=== PATIENT | female | born 1955 | race Caucasian/White ===

== ENCOUNTER 2018-04-04 08:43 | Emergency (ER) | payer OTHER, BC, SELFPAY ==
[2018-04-04 08:46] VITALS: BP 147/70; PULSE 82; RESP 18; TEMP 36.7; O2SAT 95
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
[2018-04-04] MEDS: Acetaminophen 325 MG TAB 650 MG PO (09:08)
== END 2018-04-04 11:28 | disposition home or self-care (01) ==
PROVIDERS: Emergency Provider Student in an Organized Health Care Education/Training Program; PCP Family Medicine
DX: M25.551 Pain in right hip (principal); M54.5 Low back pain; V43.53XA Car driver injured in collision with pick-up truck in traffic accident, initial encounter
CPT/HCPCS: 99283; 73502

== ENCOUNTER 2018-04-12 13:31 | Emergency (ER) | payer BC, SELFPAY ==
[2018-04-12] VITALS (73 sets, daily range): BP systolic 108–156; BP diastolic 59–84; PULSE 75–98; RESP 11–21; TEMP 36.7–37.2; O2SAT 92–98
--- NOTE | 2018-04-12 13:56 | DI.RAD_ITS ---
SYMPTOMS/DIAGNOSIS: CHEST PAIN SINCE NOON TODAY PORTABLE AP CHEST: Comparison 07/29/09. The heart size and pulmonary vasculature are within normal limits. The lungs are clear. No effusions or pneumothoraces are identified. Incidental note is made of bilateral breast implants. The bones appear intact. IMPRESSION: No acute pulmonary process.
[2018-04-12 14:17] LABS: Abs Immature Grans 0.01 k/cumm (0.0-0.09); Absolute Basophil Count 0.04 k/cumm (0.0-0.2); Absolute Eosinophil Count 0.22 k/cumm (0.0-0.7); Absolute Lymphocyte Count 1.78 k/cumm (1.2-3.4); Absolute Monocyte Count 0.32 k/cumm (0.11-0.7); Absolute Neutrophil Count 3.31 k/cumm (1.2-6.7); Basophils % 0.7; Eosinophils % 3.9; HCT 40.7 % (36.0-46.0); HGB 13.4 g/dL (12.0-15.5); Immature Grans % 0.2; Lymphocytes % 31.3; Mean Corp. HGB Concentration 32.9 g/dL (32.0-36.0); Mean Corpuscular Hemoglobin 29.5 pg (27.0-33.0); Mean Corpuscular Volume 89.5 fL (80-95); Mean Platelet Volume 9.7 fL (8.0-11.0); Monocytes % 5.6; Neutrophils % 58.3; Platelet Count 220 x1000/uL (130-400); RBC 4.55 m/cumm (4.00-5.20); White Blood Cell Count 5.68 k/cumm (4.4-10.8)
[2018-04-12 14:31] LABS: ALT 25 U/L (12-78); AST 19 U/L (15-37); Albumin 4.1 g/dL (3.4-5.0); Alkaline Phosphatase 102 U/L (46-116); Anion Gap 10.5 mmol/L (3-11); BUN 11 mg/dL (7-18); Bilirubin, Total 0.4 mg/dL (0.2-1.0); CO2 30.5 mmol/L (21.0-32.0); CREATININE 0.83 mg/dL (0.55-1.02); Calcium 9.1 mg/dL (8.5-10.1); Chloride 101 mmol/L (98-107); Glucose 91 mg/dL (70-100); Potassium 3.9 mmol/L (3.5-5.1); Sodium 142 mmol/L (136-145); Total Protein 7.5 g/dL (6.4-8.2); Troponin I 0.04 ng/mL (0.00-0.06)
--- NOTE | 2018-04-12 15:35 | NUR.NOTE ---
pt states that pain level has not decreases and was not relieved by nitro. Nursing Note:
[2018-04-12 16:33] LABS: D-Dimer 290 ng/mlFEU (<500)
--- NOTE | 2018-04-12 16:52 | ED.GENADUL_ITS ---
Discharge Plan Disposition Patient Disposition: HOME Discharge Details Chief Complaint: Chest Pain Clinical Impression: Anxiety, Chest pain Primary Care Provider: Pedro Luis Azul ED Provider: Antoine Choi Home Meds and New Rx's Prescriptions: New aspirin [Aspirin Low Dose] 81 mg tablet,delayed release (DR/EC) 81 mg PO DAILY Qty: 30 RF: 0 Continue ibuprofen 800 MG tablet 800 mg PO PRN RF: 0 duloxetine 60 MG capsule,delayed release(DR/EC) 60 mg PO DAILY Qty: 90 RF: 3 omeprazole 40 MG capsule,delayed release(DR/EC) 40 mg PO DAILY PRNQty: 30 RF: 2 naproxen 500 MG tablet 500 mg PO Q12H PRN Qty: 60 RF: 2 Lorazepam 1 MG tablet 1 mg PO ONCE Qty: 1 RF: 0 hydroxyzine pamoate [Vistaril] 50 mg capsule 50 mg PO tid prn Qty: 90 RF: 2 buspirone 5 mg tablet 5 mg PO TID Qty: 90 RF: 5 methocarbamol [Robaxin-750] 750 mg tablet 750 mg PO tid prn Qty: 90 RF: 1 alprazolam 0.25 mg tablet 0.25 mg PO BID PRN (Reason: anxiety) Qty: 5 RF: 0 pregabalin [Lyrica] 150 mg capsule 150 mg PO BID Qty: 60 RF: 2 eszopiclone [Lunesta] 3 mg tablet 3 mg PO HS PRN (Reason: insomnia) Qty: 30 RF: 1 pregabalin [Lyrica] 150 mg Capsule 150 mg PO DAILY RF: 0 Discharge Instructions Instructions: Chest Pain (ED), Anxiety (ED) Additional Instructions: You need to have a stress test performed as soon as possible. Call to schedule an appointment - see form. Please contact your primary care physician to arrange follow-up. Return to the ER for any worsening or new concerning symptoms. Stand Alone Forms: Work Release Referrals: Pedro Luis Azul [Primary Care Provider] - Discharge Data Discharge Date/Time-TO BE ENTERED AT DEPARTURE: 04/12/18 18:06 Medical Decision Making 16:50 -- 62yo f with history of tobacco use, anxiety, here with left-sided chest pain. Initial trop neg. ddimer neg. cxr interpreted by radiology: The heart size and pulmonary vasculature are within normal limits. The lungs are clear. No effusions or pneumothoraces are identified. Incidental note is made of bilateral breast implants. The bones appear intact. IMPRESSION: No acute pulmonary process I am concerned that anxiety is contributing to current presentation. Patient notes that she has had significant stress in her life regarding family issues. Her father is dying and she recently got back from visiting him in [place]. She is having disputes with her sister about property. As we were discussing that she became quite tearful and noted herself that she thinks her current presentation is related to her anxiety. Counseling was provided and she was encourage to contact her friend for support. 17:28 -- second trop neg. Patient reassessed and has remained stable. HEART score low. Plan for close outpatient follow-up. Will order outpatient stress test to expedite workup. Disposition decision was made weighing the risks and benefits of hospitalization versus outpatient treatment, the risk for further decompensation , and the patient's wishes. The patient was stable and requested discharge. Prior to discharge, my usual and customary return precautions were reviewed with the patient- this included follow-up instructions and reason to return to the emergency department if condition worsens, does not improve as expected, or other new concerns arise. Patient's friend here and will provide social support. Patient requested work note for the next few days which was provided. Referral was made to care management to arrange for close outpatient follow-up. HPI General Mode of arrival: ambulatory . Date/Time Provider Initiated Documentation: 04/12/18 13:43 . Limitations to Documentation: no limitations . Information obtained by: patient . HPI Narrative: 62-year-old female smoker with history of anxiety, presents with chief complaint of chest pain. He notes the chest pain started yesterday and has been constant. Patient notes that she went to bed last night with the pain and woke up with it. Pain is remained constant today. No modifiers. Pain is localized to her left shoulder and left upper chest and does seem to radiate into her neck. Pain is described as an ache. Pain is also sharp. Pain is 6/ 10. She does have associated fatigue and anxiety. She has no assoc SOB. No calf pain or swelling. Related Data Home Medications Medication Instructions Recorded Confirmed ibuprofen 800 mg PO PRN tab-cap 01/01/17 04/12/18 duloxetine 60 mg PO DAILY #90 tab-cap 08/17/17 04/12/18 naproxen 500 mg PO Q12H PRN #60 tab-cap 10/24/17 04/04/18 omeprazole 40 mg PO DAILY PRN #30 tab-cap 10/24/17 04/12/18 buspirone 5 mg tablet 5 mg PO TID #90 tab 02/25/18 04/04/18 hydroxyzine pamoate 50 mg capsule 50 mg PO tid prn #90 tab-cap 02/25/18 04/12/18 methocarbamol 750 mg tablet 750 mg PO tid prn #90 tab-cap 18 04/12/18 alprazolam 0.25 mg tablet 0.25 mg PO BID PRN #5 tab 03/18/18 04/04/18 pregabalin 150 mg capsule 150 mg PO BID #60 cap 03/19/18 04/04/18 eszopiclone 3 mg tablet 3 mg PO HS PRN #30 tab-cap 04/09/18 04/12/18 aspirin [Aspirin Low Dose] 81 mg PO DAILY #30 tab 04/12/18 pregabalin [Lyrica] 150 mg PO DAILY 04/12/18 04/12/18 Previous Rx's Medication Instructions Recorded duloxetine 60 mg PO DAILY #90 tab-cap 08/17/17 naproxen 500 mg PO Q12H PRN #60 tab-cap 10/24/17 buspirone 5 mg tablet 5 mg PO TID #90 tab 02/25/18 hydroxyzine pamoate 50 mg capsule 50 mg PO tid prn #90 tab-cap 02/25/18 methocarbamol 750 mg tablet 750 mg PO tid prn #90 tab-cap 03/01/18 alprazolam 0.25 mg tablet 0.25 mg PO BID PRN #5 tab 03/18/18 pregabalin 150 mg capsule 150 mg PO BID #60 cap 03/19/18 eszopiclone 3 mg tablet 3 mg PO HS PRN #30 tab-cap 04/09/18 aspirin [Aspirin Low Dose] 81 mg PO DAILY #30 tab 04/12/18 Allergies Allergy/AdvReac Type Severity Reaction Status Date / Time Topical Vitamin E AdvReac Severe Rash Uncoded 04/12/18 13:58 General Stated Complaint: Chest Pain POLO: 2 Review of Systems Review of Systems All systems reviewed & are unremarkable except as noted in HPI and below Constitutional Denies fatigue, Denies lethargy and Denies weakness Cardiovascular Reports as per HPI, Reports chest pain and Denies dyspnea Respiratory Denies cough and Denies dyspnea Gastrointestinal Denies nausea and Denies vomiting Musculoskeletal Reports arthralgias (lt shoulder) Integumentary/Breasts Denies rash Neurologic Denies weakness Psychiatric Reports anxiety and Denies suicidal ideation Endocrine Denies fatigue PFSH ARRHYTHMIA ATYPICAL NEVI Chest pain Constipation Gastritis REDUNDANT CAVERNOUS COLON Family History Mother Diabetes Personal history of malignant neoplasm Multiple myeloma Father Essential hypertension Personal history of malignant neoplasm Sister No problems noted. Sister No problems noted. Brother No problems noted. Brother No problems noted. Brother No problems noted. Grandfather Heart disease Grandfather No problems noted. Grandmother Diabetes Essential hypertension Stroke Grandmother Personal history of malignant neoplasm Augmentation mammoplasty Colonoscopy - MAC (06/03/07) EGD - MAC (06/03/07) SKIN LESION EXCISION Stress Test Family History Mother Diabetes Personal history of malignant neoplasm Multiple myeloma Father Essential hypertension Personal history of malignant neoplasm Sister No problems noted. Sister No problems noted. Brother No problems noted. Brother No problems noted. Brother No problems noted. Grandfather Heart disease Grandfather No problems noted. 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 Smoking/Tobacco Use Status: Current-Occasional alcohol intake: current alcohol intake frequency: 0-2 drinks per day substance use type: does not use seatbelt use: always helmet use: Yes helmet use: always Surgical History Augmentation mammoplasty Colonoscopy - MAC (06/03/07) EGD - MAC (06/03/07) SKIN LESION EXCISION Stress Test Social History current occupational status: employed 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 Smoking/Tobacco Use Status: Current-Occasional alcohol intake: current alcohol intake frequency: 0-2 drinks per day substance use type: does not use seatbelt use: always helmet use: Yes helmet use: always Exam Const General: cooperative and no acute distress HENMT Head: normocephalic and atraumatic Mouth: moist mucous membranes Eyes Conjunctivae: normal conjunctivae Sclera: normal sclerae EOM: EOM intact bilaterally Neck Neck: trachea midline and supple Chest Chest: tenderness (left upper anterior chest that reproduces discomfort) Resp Auscultation: clear to auscultation bilaterally, no rales, no rhonchi and no wheezes Cardio Jugular venous pressure: no JVD Rate: regular rate and not tachycardic Rhythm: regular rhythm GI Palpation: soft, not firm, no guarding, no masses, not rigid and nontender Skin General skin exam: no rashes or lesions noted Neuro General: alert, awake, oriented x3 and tone normal Extrem General: no calf tenderness bilaterally and no edema Psych Appearance: grossly normal Mental Status: mental status grossly normal Speech and Movement: speech and movement normal Course Vital Signs Pulse Oximetry 98 04/12/18 13:35 Temperature 36.7 C 04/12/18 13:39 Temperature Source Skin 04/12/18 13:39 Pulse 77 04/12/18 16:15 Pulse 79 04/12/18 16:15 Respiratory Rate 13 04/12/18 16:15 Respiratory Effort 04/12/18 14:23 Respiratory Depth Normal 04/12/18 14:23 Respiratory Pattern Normal 04/12/18 14:23 Blood Pressure 122/62 04/12/18 16:15 Blood Pressure Mean 77 04/12/18 16:15 Blood Pressure Position Supine 04/12/18 13:39 Pulse Oximetry 96 04/12/18 16:15 Oxygen Delivery Method Room Air 04/12/18 13:39 Oxygen Flow Rate 0 04/12/18 13:39 Pain Level 6 04/12/18 14:23 Lab/Test Results Lab/Test Results: Laboratory Tests Range/Units 04/12/18 04/12/18 04/12/18 13:50 13:50 13:50 WBC (4.4-10.8) k/cumm 5.68 RBC (4.00-5.20) m/cumm 4.55 Hgb (12.0-15.5) g/dL 13.4 Hct (36.0-46.0) % 40.7 MCV (80-95) fL 89.5 MCH (27.0-33.0) pg 29.5 MCHC (32.0-36.0) g/dL 32.9 RDW (11.7-14.6) % 13.0 Plt Count (130-400) x1000/uL 220 MPV (8.0-11.0) fL 9.7 Immature Gran % 0.2 Neutrophils % 58.3 Lymphocytes % 31.3 Monocytes % 5.6 Eosinophils % 3.9 Basophils % 0.7 Absolute Neutrophils (1.2-6.7) k/cumm 3.31 Absolute Lymphocytes (1.2-3.4) k/cumm 1.78 Absolute Monocytes (0.11-0.7) k/cumm 0.32 Absolute Eosinophils (0.0-0.7) k/cumm 0.22 Absolute Basophils (0.0-0.2) k/cumm 0.04 D-Dimer (<500) ng/mlFEU 290 Sodium (136-145) mmol/L 142 Potassium (3.5-5.1) mmol/L 3.9 Chloride (98-107) mmol/L 101 Carbon Dioxide (21.0-32.0) mmol/L 30.5 Anion Gap (3-11) mmol/L 10.5 BUN (7-18) mg/dL 11 Creatinine (0.55-1.02) mg/dL 0.83 Estimated GFR/1.73 m2 (mL/min/1.73m2) >= 60.00 Glucose (70-100) mg/dL 91 Calcium (8.5-10.1) mg/dL 9.1 Magnesium (1.8-2.4) mg/dL 2.0 Total Bilirubin (0.2-1.0) mg/dL 0.4 AST (15-37) U/L 19 ALT (12-78) U/L 25 Alkaline Phosphatase (46-116) U/L 102 Troponin I (0.00-0.06) ng/mL 0.04 Total Protein (6.4-8.2) g/dL 7.5 Albumin (3.4-5.0) g/dL 4.1
[2018-04-12 17:24] LABS: Troponin I 0.04 ng/mL (0.00-0.06)
== END 2018-04-12 18:06 | disposition home or self-care (01) ==
PROVIDERS: Emergency Provider Student in an Organized Health Care Education/Training Program; PCP Family Medicine
DX: F41.9 Anxiety disorder, unspecified (principal); R07.9 Chest pain, unspecified
CPT/HCPCS: 36415; 80053; 93005; 99285; 71045; 83735; 84484; 85025; 85379; 93010

== ENCOUNTER 2018-06-27 00:02 | Outpatient (CLI) | payer BC, SELFPAY ==
--- NOTE | 2018-06-27 08:30 | ETT_ITS ---
*[facility]* *[facility]* [address] [place] [address] Stress Electrocardiography Narayan protocol Date of study: 06/27/2018 *PATIENT PRESENTATION* Height: 160cm (63in) Blood Pressure: Weight: 59.1kg (130lb) BSA: 1.63m^2 Referring physician: Antoine Choi Ordering physician: Antoine Choi Impressions: Normal study after maximal exercise. Summary: 1. Stress: The target heart rate was achieved. Indication: R07.9. History: REASON FOR TESTING: ON 04/12/18 PATIENT PRESENTED TO THE ER WITH 24 HOURS OF CONSTANT, SHARP ACHING PAIN WHICH WAS (610) LOCALIZED LEFT UPPER CHEST AND LEFT SHOULDER. HER TROPONINS WERE NEGATIVE IN THE ER. PATIENT REPORTS I ALWAYS HAVE PALPITATIONS. SHE DENIES CHEST PAIN/PRESSURE UPON ARRIVAL TO TEST TODAY. SIGNIFICANT PAST MEDICAL HISTORY: ANXIETY, ARRYTHMIA. SMOKING STATUS: CURRENT OCCASIONAL SMOKER (SMOKES 1 PACK PER WEEK). 6 YEAR SMOKING HISTORY. EXERCISE ROUTINE: DAILY ADL'S. Risk factors: Family history of coronary artery disease. Current tobacco use. ALLERGIES: TOPICAL VITAMIN E. MEDICATIONS: ASPIRIN 81 MG DAILY, DULOXETINE 60 MG DAILY, OMEPRAZOLE 40 MG PRN, NAPROXEN 500 MG PRN, VISTARIL 50 MG TID PRN. BUSPIRONE 5 MG TID, ROBAXIN 750 MG TID PRN, ALPRAZOLAM 0.25 MG PRN, LYRICA 150 MG BID, LUNESTA 3 MG HS. Protocol: Narayan protocol. Baseline ECG: SINUS RHYTHM. HR 78. T WAVE INVERSIONS IN AVL AND V1 LEADS. Stress protocol: + +---+ + !Stage !HR !BP (mmHg) ! + +---+ + !Baseline supine !78 !130/88 (102)! + +---+ + !Baseline standing !85 !140/98 (112)! + +---+ + !Stage I; 1.7mph, 10degrees; 3 min !117!140/80 (100)! + +---+ + !Stage II; 2.5mph, 12degrees; 3 min !125!148/80 (103)! + +---+ + !Stage III; 3.4mph, 14degrees; 3 min!143!160/78 (105)! + +---+ + !Peak stress !154! ! + +---+ + !Recovery; 1 min !141!174/74 (107)! + +---+ + !Recovery; 3 min !107!180/88 (119)! + +---+ + !Recovery; 6 min !95 !150/90 (110)! + +---+ + !Recovery; 9 min !93 !142/88 (106)! + +---+ + * Stress results: STRESS TEST ENDED IN 10 MINUTES DUE TO FATIGUE. NORMAL HEART RATE AND BLOOD PRESSURE RESPONSE TO EXERCISE. MAX HEART RATE: 154 98 % OF TARGET HEART RATE ACHIEVED. MET'S: 11.80. NO ECTOPY. NO ANGINA. NO SIGNIFICANT ST SEGMENT CHANGES. FUNCTIONAL CAPACITY: ABOVE AVERAGE. Maximal heart rate during stress was 154bpm (98% of maximal predicted heart rate). The maximal predicted heart rate was 157bpm. The target heart rate was achieved. The rate-pressure product for the peak heart rate and blood pressure was 32943cn Hg/min. Study data: Jeffy Parson MD supervised and was readily available during the procedure. This study was interpreted by [facility]. Study status: Routine. Consent: The risks, benefits, and alternatives to the procedure were explained to the patient and informed consent was obtained. Procedure: Initial setup. A baseline ECG was recorded. Surface ECG leads and manual cuff blood pressure measurements were monitored. Heart sounds: Normal. Lung sounds: Normal. Treadmill exercise testing was performed using the Narayan protocol. Study completion: The patient tolerated the procedure well and was discharged from the lab. Discharge: The patient left the laboratory in stable condition. Birthdate: Patient birthdate: 1955. Sex: Gender: female. Study date: Study date: 06/27/2018. Study time: 00:01 AM. Signature Documentation: The Stress ECG portion of this study was interpreted by Jeffy Parson MD. Electronically signed by Jeffy Parson 06/27/2018 10:27
[2018-06-27 11:44] LABS: Glucose 91 mg/dL (70-100)
[2018-06-27 12:07] LABS: FREE T4 0.81 ng/dL (0.76-1.46)
[2018-06-28 12:49] LABS: Measles IgG Antibody Positive
[2018-06-28 13:00] LABS: Rubella IgG Ab (UVM) Positive; Varicella IgG Antibody Positive
[2018-06-28 13:50] LABS: Mumps Antibody IgG Positive (Negative)
[2018-07-01 10:07] LABS: Hepatitis B Surface Ab Positive
[2018-07-01 12:25] LABS: TB Interpretation Negative (NEGAT); TB1 Ag minus Nil 0.01 IU/mL
== END 2018-06-27 00:22 ==
PROVIDERS: Nurse Practitioner Family; PCP Family Medicine; Referring Provider Family Medicine; Visit Provider Student in an Organized Health Care Education/Training Program
DX: R07.9 Chest pain, unspecified (principal); R00.2 Palpitations; F41.8 Other specified anxiety disorders; F17.200 Nicotine dependence, unspecified, uncomplicated; Z82.49 Family history of ischemic heart disease and other diseases of the circulatory system; R53.83 Other fatigue; R94.6 Abnormal results of thyroid function studies; Z01.84 Encounter for antibody response examination
CPT/HCPCS: 36415; 82947; 86706; 86787; 84439; 84443; 86480; 86735; 86762; 86765; 93017

== ENCOUNTER 2018-09-15 17:17 | Emergency (ER) | payer MEDICAID, SELFPAY ==
[2018-09-15] VITALS (18 sets, daily range): BP systolic 133–174; BP diastolic 74–99; PULSE 89–123; RESP 12–34; TEMP 36.6; O2SAT 92–98
[2018-09-15] MEDS: Normal Saline 1,000 ML 1000 ML IV (17:45)
[2018-09-15 17:46] LABS: Abs Immature Grans 0.03 k/cumm (0.0-0.09); Absolute Basophil Count 0.03 k/cumm (0.0-0.2); Absolute Eosinophil Count 0.17 k/cumm (0.0-0.7); Absolute Lymphocyte Count 2.22 k/cumm (1.2-3.4); Absolute Monocyte Count 0.53 k/cumm (0.11-0.7); Absolute Neutrophil Count 3.25 k/cumm (1.2-6.7); Basophils % 0.5; Eosinophils % 2.7; HCT 42.1 % (36.0-46.0); HGB 13.9 g/dL (12.0-15.5); Immature Grans % 0.5; Lymphocytes % 35.6; Mean Corpuscular Hemoglobin 29.1 pg (27.0-33.0); Mean Corpuscular Volume 88.3 fL (80-95); Mean Platelet Volume 9.8 fL (8.0-11.0); Monocytes % 8.5; Neutrophils % 52.2; Platelet Count 252 x1000/uL (130-400); RBC 4.77 m/cumm (4.00-5.20); RBC Distribution Width 14.1 % (11.7-14.6); White Blood Cell Count 6.23 k/cumm (4.4-10.8)
[2018-09-15 17:59] LABS: Bilirubin Negative (Negative); Blood Negative (Negative); Clarity Clear; Glucose Negative (Negative); Ketones Negative (Negative); Leukocyte Esterase Negative (Negative); Nitrite Negative (Negative); Urobilinogen 0.2 EU/dL (Up TO 0.2)
[2018-09-15 18:03] LABS: ALT 48 U/L (12-78); AST 25 U/L (15-37); Alkaline Phosphatase 131 U/L (46-116); Anion Gap 8.6 mmol/L (3-11); BUN 7 mg/dL (7-18); Bilirubin, Total 0.2 mg/dL (0.2-1.0); CO2 29.4 mmol/L (21.0-32.0); CREATININE 0.77 mg/dL (0.55-1.02); Calcium 8.6 mg/dL (8.5-10.1); Chloride 108 mmol/L (98-107); ETHANOL BLOOD 133.2 mg/dL (<3); Glucose 123 mg/dL (70-100); Potassium 3.6 mmol/L (3.5-5.1); Sodium 146 mmol/L (136-145); TSH 7.05 uIU/mL (0.358-3.74); Total Protein 7.5 g/dL (6.4-8.2)
[2018-09-15 18:19] LABS: *AMPHETAMINES SCREEN URINE Negative (Negative); *BARBITURATES SCREEN URINE Negative (Negative); *BENZODIAZEPINES SCREEN URINE Negative (Negative); Cannabinoids THC Negative (Negative); Cocaine Screen,Urine Negative (Negative); METHADONE URINE SCREEN Negative (Negative); OPIATES URINE SCREEN Negative (Negative)
[2018-09-15 18:21] LABS: Salicylate 3.2 mg/dL (2.8-20.0)
[2018-09-15 18:25] LABS: Tricyclic Antidepressants Negative (Negative)
[2018-09-15 18:27] LABS: Acetaminophen < 2 ug/mL (10-30)
[2018-09-15] MEDS: Acetaminophen 325 MG TAB 650 MG PO (19:02)
--- NOTE | 2018-09-15 19:02 | PDOC.ERCMPRO ---
Care Management Progress Note S/O: SAFETY PLAN: ED Room #9 LP Time and Date: 09/15/18 22:30 Safety plan has been established with patient, and care team, to adhere to patient goals, identify restrictions based on behavioral status, address nutrition, and determine allowed personal belongings, tools for hygiene and personal care. Determine level of activity including ambulation, level of supervision, visitors, and determine privileges based on behaviors and level of engagement by pt. 1. Will remain on suicide precautions and in paper scrubs. 2. Will remain in room under direct observation of one-on-one staff at all times provided by [employer] (SWATI, MARINE DESIGNER tree and shrub worker). 3. May have paper cups, plates, finger foods as well as a metal spoon with which to eat meals. [facility] staff will be responsible for accounting of utensils after meals. 4. Follow [facility] Management of the Admitted Behavioral Health Patient policy printed and attached to the safety plan in physical chart. 5. Comfort bath system only. 6. No personal belongings in the room 7. May have visitors at patient discretion. 8. No cell phone at this time. 9. Staff escort to the bathroom 10. Transition from the ED to the M/S Unit will be coordinated by the general house worker based on staffing and bed availability. 11. Voluntary admission status. If Hetal wishes to leave the hospital the [facility] Cook must be contacted to re-evaluate her prior to her exit from the building. [facility] will be coordinating placement at inpatient facility, last updates included the following: Referrals sent to: Patient is currently voluntarily at [facility] and seeking inpatient admission. Please contact the [employer] Demand Manager ([phone]) and [facility] Cook ([phone]) for any needed changes in the Safety Plan. Safety plan has been provided to interdepartmental care team including Clinical Coordinator, Nursing Quality Process Engineer.
--- NOTE | 2018-09-15 19:43 | ED.GENADUL_ITS ---
Discharge Plan Disposition Patient Disposition: [facility] Condition: Fair Discharge Details Chief Complaint: OD/Poison Clinical Impression: Anxiety, Depression, Acute alcohol intoxication, Suicide ideation Primary Care Provider: Pedro Luis Azul ED Provider: Yumiko Knutson [place] Meds and New Rx's Prescriptions: Continued duloxetine 60 mg capsule,delayed release(DR/EC) 60 mg PO DAILY RF: 0 No Action Lyrica 150 mg capsule 150 mg PO BID RF: 0 naproxen 500 mg tablet 500 mg PO Q12H PRN RF: 0 levothyroxine 50 mcg tablet 75 mcg PO DAILY Qty: 90 RF: 3 doxepin 50 mg capsule 50 mg PO QHS Qty: 30 RF: 2 alprazolam 0.25 mg tablet 0.25 mg PO BID PRN (Reason: anxiety) Qty: 5 RF: 0 buspirone 5 mg tablet 5 mg PO TID Qty: 60 RF: 1 hydroxyzine pamoate [Vistaril] 50 mg capsule 50 mg PO tid prn Qty: 90 RF: 0 omeprazole 40 mg capsule,delayed release(DR/EC) 40 mg PO DAILY PRN (Reason: gerd) Qty: 30 RF: 0 Discharge Instructions Instructions: Alcohol Intoxication (ED), Suicide Prevention for Adults (ED) Additional Instructions: Encourage hydration with water. Abstain from further alcohol. He will be kept in police custody overnight for reevaluation with mental health once we have been able to wear off. Please continue with your counselor. Follow-up with your primary care this week for reevaluation. Referrals: Pedro Luis Azul [Primary Care Provider] - Discharge Data Discharge Date/Time-TO BE ENTERED AT DEPARTURE: 09/15/18 20:22 Medical Decision Making Patient is 63-year-old female, brought in via EMS, with chief complaint of suicidal ideation, intoxication. Patient reports that she has been having very hard day. States that she went to the cemetery to see her parents who have recently to find that her father was being buried in the wrong place. This greatly exacerbated her current depressed state. She reports she is having difficulty coping with her parents recent as well as other issues with her siblings. She reports that she has thought of suicide and plans to overdose on pills. States she has abused street drugs historically but has not done so in the past year. She does report that she drank 3 tall Reagan ice teas prior to presentation today. States that in her intoxicated state she fell prompting her call to EMS. She denies any pain. Did not lose consciousness. No headache, no visual changes. She is denying any pain, trauma exam is negative at this time. She denies taking any pills not as prescribed to her. She denies any illicit drugs recently. Her medications were brought in by EMS and examined for any potential overdose. At this time, the medication counts are appropriate and do not have any evidence to suggest abuse. Plan obtain the labs and keep patient safe. Will also have a CPS so ordered as the patient is endorsing suicidal ideation. Will consult with mental health to evaluate. Patient went from a very depressed and sad states he suddenly becoming quite agitated and tried to pull out her IVs. She was successful in pulling at once. 1 mg of Ativan was given which greatly helped with the patient's mood. She continues to be crying and repetitively discussing the recent events regarding the family situation and how these are difficult to deal with. Alcohol level 133. UDS is negative. Laboratory evaluation otherwise without significant abnormality. Mental health evaluated the patient and feel that she is safe for discharge at this time she is quite appropriate with them. Since being here, the patient has been quite labile and oscillating between depression, state of calm to sudden agitation. I went to go and evaluate the patient and ensure that she agrees with the safety plan set up by mental health services and the patient reports that she will lie did not have to be admitted. She reports to me that she is unable to contract for safety that she will lie if anybody asked to regarding this so that she is able to be discharged to home. She continues to feel depressed, suicidal. When I began discussing disposition with her, she suddenly became defensive reporting, you cannot keep me here, I will leave no matter what but does continue to admit to suicidal ideation. She reprots that she has medications at home and that she has thought of overdosing. With this in mind, I spoke with health again who advised the patient is not safe to be discharged home. As the patient is currently intoxicated, the patient will be sent to please custody for monitoring, time to sober up and reevaluation with mental health. Patient discharged into police custody. HPI General Mode of arrival: EMS . Date/Time Provider Initiated Documentation: 09/15/18 17:30 . Limitations to Documentation: no limitations . Information obtained by: patient, EMS and RN notes reviewed . HPI Narrative: Patient is a 63 year old female, brought in via EMS, with chief complaint of suicidal ideation, intoxication. Patient reports that she has had several social stressors, primarily regarding her family, including poor relationship with her son-in-law, doing drugs, recent demise of both of her parents and father being buried in the wrong location. States that she was drinking today when she fell. States she tripped and fell in a difficulty getting herself to a standing position once again. This prompted her to call EMS. She denies any trauma. Only reporting that he does not care regarding her life, has been thinking about overdosing on pills. Patient is a number of medication reports that she could overdose on. She denies previous attempts at suicide. States she does not drink daily but during the time week and when she does drink quite heavily. Related Data Home Medications Medication Instructions Recorded Confirmed duloxetine 60 mg capsule,delayed 60 mg PO DAILY 08/27/18 09/18/18 release alprazolam 0.25 mg tablet 0.25 mg PO BID PRN #5 tab 09/18/18 09/18/18 buspirone 5 mg tablet 5 mg PO TID #60 tab 09/18/18 09/18/18 doxepin 50 mg capsule 50 mg PO QHS #30 cap 09/18/18 09/18/18 hydroxyzine pamoate 50 mg capsule 50 mg PO tid prn #90 tab-cap 09/18/18 09/18/18 levothyroxine 50 mcg tablet 75 mcg PO DAILY #90 tab 09/18/18 09/18/18 naproxen 500 mg tablet 500 mg PO Q12H PRN tab-cap 09/18/18 09/18/18 omeprazole 40 mg capsule,delayed 40 mg PO DAILY PRN #30 tab-cap 09/18/18 09/18/18 release pregabalin 150 mg capsule 150 mg PO BID cap 09/18/18 09/18/18 Previous Rx's Medication Instructions Recorded alprazolam 0.25 mg tablet 0.25 mg PO BID PRN #5 tab 09/18/18 buspirone 5 mg tablet 5 mg PO TID #60 tab 09/18/18 doxepin 50 mg capsule 50 mg PO QHS #30 cap 09/18/18 hydroxyzine pamoate 50 mg capsule 50 mg PO tid prn #90 tab-cap 09/18/18 levothyroxine 50 mcg tablet 75 mcg PO DAILY #90 tab 09/18/18 omeprazole 40 mg capsule,delayed 40 mg PO DAILY PRN #30 tab-cap 09/18/18 release Allergies Allergy/AdvReac Type Severity Reaction Status Date / Time Topical Vitamin E AdvReac Severe Rash Uncoded 09/18/18 10:18 General Stated Complaint: OD/Poison POLO: 2 Review of Systems Constitutional Reports as per HPI, Denies chills, Denies fatigue, Denies fever(s), Denies headache(s) and Denies weakness Eyes Reports as per HPI, Denies blurry vision, Denies change in vision and Denies loss of vision ENT Denies abnormal hearing and Denies headache(s) Cardiovascular Reports as per HPI, Denies chest pain and Denies dyspnea Respiratory Reports as per HPI, Denies cough, Denies pain on inspiration, Denies pain with cough and Denies dyspnea Gastrointestinal Reports as per HPI, Denies abdominal pain, Denies nausea and Denies vomiting Genitourinary Reports as per HPI and Denies urinary incontinence Musculoskeletal Reports as per HPI, Reports abnormal gait (associates with intoxicated state), Denies back pain and Denies myalgias Integumentary/Breasts Reports as per HPI and Denies rash Neurologic Reports as per HPI, Denies abnormal hearing, Denies abnormal movements, Denies abnormal speech, Reports abnormal gait (associates with intoxicated state), Denies confusion, Denies headache(s), Denies lack of coordination, Denies focal weakness, Denies loss of vision, Denies seizure-like activity, Denies p aresthesias and Denies weakness Psychiatric Reports as per HPI, Reports anxiety, Denies change in appetite, Denies confusion, Reports depression, Reports hopelessness, Reports mood swings, Reports panic attacks, Denies visual hallucinations, Denies hallucinations, Denies tactile hallucinations, Denies homicidal ideation and Reports suicidal ideation Endocrine Denies fatigue [facility] Medical History Depressed (Chronic) ARRHYTHMIA ATYPICAL NEVI Chest pain Constipation Gastritis REDUNDANT CAVERNOUS COLON Surgical History Augmentation mammoplasty Colonoscopy - MAC (06/03/07) EGD - MAC (06/03/07) SKIN LESION EXCISION Stress Test Social History Smoking/Tobacco Use Status: Current-Occasional Alcohol Intake: current Alcohol Intake frequency: 0-2 drinks per day Drug use: Occasionally Substance use type: does not use current occupation: Respiratory therapist Duration: 45-60 minutes/day Frequency: 5-6 times per week Seatbelt use: always Helmet use: Yes Helmet use: always Do you feel safe in your relationship?: Yes Exam Const General: cooperative, healthy appearing, comfortable, well developed, well groomed, acute distress (patient is crying, perseverating on social stressors, appears very anxious ) and intoxicated appearing Nutritional Appearance: average body habitus and well nourished Orientation: alert, awake and oriented x3 HENMT Head: normal to inspection, no palpable skull fracture, normocephalic and atraumatic Ears: hearing grossly normal bilaterally, external ears normal and TM's normal bilaterally General nose exam: external nose normal Mouth: oral mucosae normal, lip normal and tongue normal Throat: posterior oropharynx normal Eyes General: appearance normal, both eyes and all related structures Visual Luna: normal visual luna by confrontation Alignment and Position: alignment normal Periorbital: periorbital findings normal Eyelids: eyelids normal Conjunctivae: conjunctivae normal Pupils: PERRL EOM: EOM intact bilaterally Neck Neck: normal visual inspection, full ROM, no lymphadenopathy, no meningeal signs, trachea midline and supple Chest Chest: normal inspection of the chest, normal palpation of entire chest wall, no crepitus and no localized rib tenderness Resp Effort & Inspection: normal respiratory effort, able to speak in complete sentences and no respiratory distress Auscultation: clear to auscultation bilaterally, no rales, no rhonchi and no wheezes Cardio Rate: regular rate Rhythm: regular rhythm Heart Sounds: S1 normal and S2 normal GI Inspection: normal to inspection, no abdominal wall ecchymosis, no edema and non-distended Palpation: soft, no hepatosplenomegaly, not firm, no guarding, no pulsatile masses, not rigid and nontender Auscultation: normal bowel sounds Back/Spine/Pelvis Back: no CVA tenderness Cervical Spine: normal cervical lordosis and cervical ROM normal Thoracic/Lumbar Spine: thoracic and lumbar spine normal to inspection, thoraco- lumbar ROM normal, No thoraco-lumbar ROM limited, No thoraco-lumbar spasm and No thoracic spinal tenderness Pelvis: no pain with anterior-posterior compression and no pain with lateral compression Skin General skin exam: no rashes or lesions noted Lesions: no lesions Rashes: no rashes Trauma: no lacerations or abrasions Wounds: no wounds Neuro General: alert, awake, oriented x3, gait normal, tone normal and moves all extremities Cranial Nerves: CN's II-XI intact bilaterally Cognition: normal cognition Speech: speech normal Gait: normal gait Motor: muscle tone normal throughout and strength 5/5 throughout Sensory Exam: no sensory deficits noted (no saddle paresthesias) Extrem General: normal to inspection, full ROM, normal capillary refill, no pedal edema and no calf tenderness Psych Appearance: grossly normal and well kempt Mental Status: other (perseverating on family issues, cring, anxious) Speech and Movement: agitated, speech clear, restless and slurred speech (patient appears intoxicated) Mood: anxious mood, labile mood, irritable mood and other (perseverating on family issues, cring, anxious) Affect: labile affect, sad, anxious affect and hostile (patient intermittently hostile, pulling out IV and yelling at staff) Attitude: cooperative (with intermittent changes to becoming beligerent) Thought Process: perseverating Thought Content: no homicidality and suicidality Insight: poor Judgment: poor Course Vital Signs Respiratory Rate 29 H 09/15/18 17:13 Pulse Oximetry 92 L 09/15/18 17:13 Temperature 36.6 C 09/15/18 17:23 Temperature Source Skin 09/15/18 17:23 Pulse 89 09/15/18 18:30 Pulse 94 H 09/15/18 18:31 Respiratory Rate 18 09/15/18 18:31 Respiratory Effort Non-Labored 09/15/18 18:33 Respiratory Depth Normal 09/15/18 17:52 Respiratory Pattern Normal 09/15/18 17:52 Blood Pressure 164/98 H 09/15/18 18:30 Blood Pressure Mean 113 09/15/18 18:30 Pulse Oximetry 94 L 09/15/18 18:31 Lab/Test Results Lab/Test Results: Laboratory Tests Range/Units 09/15/18 09/15/18 09/15/18 17:00 17:30 17:30 WBC (4.4-10.8) k/cumm RBC (4.00-5.20) m/cumm Hgb (12.0-15.5) g/dL Hct (36.0-46.0) % MCV (80-95) fL MCH (27.0-33.0) pg MCHC (32.0-36.0) g/dL RDW (11.7-14.6) % Plt Count (130-400) x1000/uL MPV (8.0-11.0) fL Immature Gran % Neutrophils % Lymphocytes % Monocytes % Eosinophils % Basophils % Absolute Neutrophils (1.2-6.7) k/cumm Absolute Lymphocytes (1.2-3.4) k/cumm Absolute Monocytes (0.11-0.7) k/cumm Absolute Eosinophils (0.0-0.7) k/cumm Absolute Basophils (0.0-0.2) k/cumm Sodium (136-145) mmol/L 146 H Potassium (3.5-5.1) mmol/L 3.6 Chloride (98-107) mmol/L 108 H Carbon Dioxide (21.0-32.0) mmol/L 29.4 Anion Gap (3-11) mmol/L 8.6 BUN (7-18) mg/dL 7 Creatinine (0.55-1.02) mg/dL 0.77 Estimated GFR/1.73 m2 (mL/min/1.73m2) >= 60.00 Glucose (70-100) mg/dL 123 H Calcium (8.5-10.1) mg/dL 8.6 Total Bilirubin (0.2-1.0) mg/dL 0.2 AST (15-37) U/L 25 ALT (12-78) U/L 48 Alkaline Phosphatase (46-116) U/L 131 H Total Protein (6.4-8.2) g/dL 7.5 Albumin (3.4-5.0) g/dL 4.0 TSH (0.358-3.74) uIU/mL 7.05 H Urine Color (Yellow) Straw Urine Clarity Clear Urine pH (5-8) 7.0 Ur Specific [place] (1.005-1.025) 1.010 Urine Protein (Negative) mg/dL Negative Urine Ketones (Negative) mg/dL Negative Urine Blood (Negative) Negative Urine Nitrite (Negative) Negative Urine Bilirubin (Negative) Negative Urine Urobilinogen (Up TO 0.2) EU/dL 0.2 Ur Leukocyte Esterase (Negative) Negative Urine Glucose (Negative) mg/dL Negative Salicylates (2.8-20.0) mg/dL 3.2 Urine Opiates Screen (Negative) Urine Methadone Screen (Negative) Acetaminophen (10-30) ug/mL < 2 L Ur Barbiturates Screen (Negative) Ur Tricyclics Screen (Negative) Ur Amphetamines Screen (Negative) U Benzodiazepines Scrn (Negative) Urine Cocaine Screen (Negative) Ur THC Screen (Negative) Ethyl Alcohol (<3) mg/dL 133.2 Range/Units 09/15/18 09/15/18 17:30 17:34 WBC (4.4-10.8) k/cumm 6.23 RBC (4.00-5.20) m/cumm 4.77 Hgb (12.0-15.5) g/dL 13.9 Hct (36.0-46.0) % 42.1 MCV (80-95) fL 88.3 MCH (27.0-33.0) pg 29.1 MCHC (32.0-36.0) g/dL 33.0 RDW (11.7-14.6) % 14.1 Plt Count (130-400) x1000/uL 252 MPV (8.0-11.0) fL 9.8 Immature Gran % 0.5 Neutrophils % 52.2 Lymphocytes % 35.6 Monocytes % 8.5 Eosinophils % 2.7 Basophils % 0.5 Absolute Neutrophils (1.2-6.7) k/cumm 3.25 Absolute Lymphocytes (1.2-3.4) k/cumm 2.22 Absolute Monocytes (0.11-0.7) k/cumm 0.53 Absolute Eosinophils (0.0-0.7) k/cumm 0.17 Absolute Basophils (0.0-0.2) k/cumm 0.03 Sodium (136-145) mmol/L Potassium (3.5-5.1) mmol/L Chloride (98-107) mmol/L Carbon Dioxide (21.0-32.0) mmol/L Anion Gap (3-11) mmol/L BUN (7-18) mg/dL Creatinine (0.55-1.02) mg/dL Estimated GFR/1.73 m2 (mL/min/1.73m2) Glucose (70-100) mg/dL Calcium (8.5-10.1) mg/dL Total Bilirubin (0.2-1.0) mg/dL AST (15-37) U/L ALT (12-78) U/L Alkaline Phosphatase (46-116) U/L Total Protein (6.4-8.2) g/dL Albumin (3.4-5.0) g/dL TSH (0.358-3.74) uIU/mL Urine Color (Yellow) Urine Clarity Urine pH (5-8) Ur Specific [place] (1.005-1.025) Urine Protein (Negative) mg/dL Urine Ketones (Negative) mg/dL Urine Blood (Negative) Urine Nitrite (Negative) Urine Bilirubin (Negative) Urine Urobilinogen (Up TO 0.2) EU/dL Ur Leukocyte Esterase (Negative) Urine Glucose (Negative) mg/dL Salicylates (2.8-20.0) mg/dL Urine Opiates Screen (Negative) Negative Urine Methadone Screen (Negative) Negative Acetaminophen (10-30) ug/mL Ur Barbiturates Screen (Negative) Negative Ur Tricyclics Screen (Negative) Negative Ur Amphetamines Screen (Negative) Negative U Benzodiazepines Scrn (Negative) Negative Urine Cocaine Screen (Negative) Negative Ur THC Screen (Negative) Negative Ethyl Alcohol (<3) mg/dL
[2018-09-15 19:50] LABS: FREE T4 0.99 ng/dL (0.76-1.46)
== END 2018-09-15 20:22 | disposition home or self-care (01) ==
PROVIDERS: Emergency Provider Physician Assistant; PCP Family Medicine
DX: F10.120 Alcohol abuse with intoxication, uncomplicated (principal); F41.8 Other specified anxiety disorders; R45.851 Suicidal ideations; W01.0XXA Fall on same level from slipping, tripping and stumbling without subsequent striking against object, initial encounter
CPT/HCPCS: 36415; 80053; 80307; 96360; 99285; 80320; 80329; 81003; 84439; 84443; 85025; 99284

== ENCOUNTER 2018-11-08 08:37 | Outpatient (CLI) | payer MEDICAID, SELFPAY ==
[2018-11-08 10:06] LABS: TSH (W/Ref FT4) 0.46 uIU/mL (0.358-3.74)
== END 2018-11-08 08:57 ==
PROVIDERS: PCP Family Medicine; Visit Provider Family Medicine
DX: E03.9 Hypothyroidism, unspecified (principal)
CPT/HCPCS: 36415; 84443

== ENCOUNTER 2019-05-19 12:24 | Outpatient (CLI) | payer MEDICAID, SELFPAY ==
[2019-05-19 13:58] LABS: TSH (W/Ref FT4) 0.67 uIU/mL (0.36-3.74)
== END 2019-05-19 12:44 ==
PROVIDERS: PCP Family Medicine; Visit Provider Family Medicine
DX: E03.9 Hypothyroidism, unspecified (principal)
CPT/HCPCS: 36415; 84443

== ENCOUNTER 2020-12-29 20:18 | Emergency (ER) | payer MEDICARE, MEDICAID, SELFPAY ==
[2020-12-29] VITALS (11 sets, daily range): BP systolic 109–144; BP diastolic 61–76; PULSE 56–68; RESP 18; TEMP 36.8; O2SAT 97–100
--- NOTE | 2020-12-29 20:41 | ED.GENADUL_ITS ---
Discharge Plan Disposition Patient Disposition: HOME Condition: Stable Discharge Details Clinical Impression: Injury of adductor muscle of thigh Primary Care Provider: Pedro Luis Azul ED Provider: Rhys Moeller Home Meds and New Rx's Prescriptions: New hydrocodone-acetaminophen 5-325 mg tablet 1 tab PO Q6H PRN (Reason: pain) Qty: 7 RF: 0 Continued levothyroxine 75 mcg capsule 75 mcg PO DAILY Qty: 90 RF: 3 metoprolol tartrate 50 mg tablet 75 mg PO BID RF: 0 hydrochlorothiazide 12.5 mg tablet 12.5 mg PO DAILY RF: 0 atorvastatin 40 mg tablet 40 mg PO DAILY RF: 0 aspirin 81 mg tablet,delayed release (DR/EC) 81 mg PO DAILY RF: 0 citalopram 20 mg tablet 20 mg PO DAILY RF: 0 eszopiclone 3 mg tablet 3 mg PO HS RF: 0 alprazolam 0.25 mg tablet 0.5 mg PO TID RF: 0 Discharge Instructions Additional Instructions: You have a tear of the abductor muscles of the right leg. Initial healing will occur over 7 to 10 days time and then may continue over the next 3 to 6 weeks. Apply ice to the inside of the thigh to reduce pain and swelling. Use elastic compression bandage to stabilize the thigh. Remove bandages while asleep at bedtime as they can become too tight when used for 24 hours straight. May use crutches as needed. May crutch walk as needed. Please follow-up with physical therapy to help in recovery by reducing pain, returning to full motion and strengthening. May use Tylenol and/or ibuprofen as needed for discomfort. May may use the provided hydrocodone if needed for severe or breakthrough pain. Please note this contains 325 mg of Tylenol and no additional Tylenol should be used with this medication. Do not use with your alprazolam. Stand Alone Forms: Physical Therapy Referral, Work Release Medical Decision Making 65-year-old female was attempting to get up onto water skis pulled behind a boat when she felt a pop in her right groin while doing the splits. She was not injured in any other way but had significant right leg pain, worse with movement and required assistance with ambulation. She presents to the ER in mild to moderate distress but with unremarkable vital signs. She has reproducible tenderness along the medial thigh and groin muscles. No evidence of motor deficits. Most consistent with muscular injury. Patient referred for x-ray: No acute findings Most consistent with grade 2, moderate injury to muscle fibers. Will treat with compression, referral for physical therapy. She may require increased analgesics at home. She is stable and appropriate for outpatient management HPI General Mode of arrival: ambulatory . Date/Time Provider Initiated Documentation: 12/29/20 20:20 . Limitations to Documentation: no limitations . Information obtained by: patient . History of Present Illness 65 year old F presents to the emergency department with the chief complaint of Right leg injury while attempting to water ski, described as moderate, Quality is described as dull and constant, and is localized to the right and lower extremity. Patient reports no radiation. Patient started experiencing this hour(s) and it has been constant. Movement improves symptom(s), Rest worsens symptoms . Patient notes no other symptoms.. Patient did receive the following treatments prior to arrival, none Related Data Home Medications Medication Instructions Recorded Confirmed levothyroxine 75 mcg capsule 75 mcg PO DAILY #90 cap 11/10/19 12/29/20 alprazolam 0.5 mg PO TID 12/29/20 12/29/20 aspirin 81 mg PO DAILY 12/29/20 12/29/20 atorvastatin 40 mg PO DAILY 12/29/20 12/29/20 citalopram 20 mg PO DAILY 12/29/20 12/29/20 eszopiclone 3 mg PO HS 12/29/20 12/29/20 hydrochlorothiazide 12.5 mg PO DAILY 12/29/20 12/29/20 hydrocodone-acetaminophen 1 tab PO Q6H PRN #7 tab 12/29/20 metoprolol tartrate 75 mg PO BID 12/29/20 12/29/20 Previous Rx's Medication Instructions Recorded levothyroxine 75 mcg capsule 75 mcg PO DAILY #90 cap 11/10/19 hydrocodone-acetaminophen 1 tab PO Q6H PRN #7 tab 12/29/20 Allergies Allergy/AdvReac Type Severity Reaction Status Date / Time Antihistamines - Alkylamine Allergy Other (See Unverified 12/29/20 20:41 Comment) Topical Vitamin E AdvReac Severe Rash Uncoded 12/29/20 21:03 General Stated Complaint: Orthopedic POLO: 3 Review of Systems Narrative: No other injury. No numbness or tingling. Pain with movement. 6 systems reviewed and otherwise negative PFSH Medical History ARRHYTHMIA ATYPICAL NEVI Chest pain Chronic insomnia Constipation Depressed Gastritis Hypothyroidism REDUNDANT CAVERNOUS COLON Surgical History (Updated 12/11/18 @ 08:20 by Simba Dobbs) Augmentation mammoplasty Colonoscopy - [facility] (06/03/07) EGD - MAC (06/03/07) SKIN LESION EXCISION Stress Test 08/21/16- [facility]-normal stress test Family History Mother Diabetes Personal history of malignant neoplasm BREAST Multiple myeloma Father Essential hypertension Personal history of malignant neoplasm RECTAL Sister No problems noted. Sister No problems noted. Brother No problems noted. Brother No problems noted. Brother No problems noted. Grandfather Heart disease Grandfather No problems noted. Grandmother Diabetes Essential hypertension Stroke Grandmother Personal history of malignant neoplasm STOMACH Social History Smoking/Tobacco Use Status: Current every day Tobacco Type: cigarettes Smoking risk assessment performed?: Yes Alcohol Intake: current Alcohol Intake frequency: a few times a month Drug use: Occasionally Substance use type: does not use current occupation: Respiratory therapist Duration: 45-60 minutes/day Frequency: 5-6 times per week Seatbelt use: always Helmet use: Yes Helmet use: always Do you feel safe at home: Yes Do you feel safe in your relationship?: Yes Exam Narrative Exam Narrative: GEN: awake, alert, oriented 3. Pleasant, well groomed, interac tive. HEAD: Normocephalic, atraumatic ENT: Mucous membranes moist, oropharynx unremarkable, External ear exam unremarkable EYES: PERRL, EOMI NECK: Full ROM, no ESTIVEN, no menigismus CHEST/RESP: No respiratory distress EXT: Right medial thigh/groin with tenderness over the proximal third. No muscular defect noted. Patient able to demonstrate normal movement of abductor, adductor, flexion and extension of right leg. Most pain is elicited with adduction. Neuro: Grossly normal neurologic exam, conversant, interactive. Psych: Speech fluent, thoughts congruent, affect normal Course Vital Signs Vital signs: Vital Signs Temperature 36.8 C 12/29/20 20:26 Pulse 68 12/29/20 20:26 Respiratory Rate 18 08/25/21 20:26 Blood Pressure 144/76 H 12/29/20 20:26 Pulse Oximetry 100 12/29/20 20:26 Temperature 36.8 C 12/29/20 20:26 Temperature Source Temporal Artery Scan 12/29/20 20:26 Pulse 68 12/29/20 20:26 Respiratory Rate 18 12/29/20 20:26 Blood Pressure 144/76 H 12/29/20 20:26 Blood Pressure Position Sitting 12/29/20 20:26 Pulse Oximetry 100 12/29/20 20:26 Oxygen Delivery Method Room Air 12/29/20 20:26 Oxygen Flow Rate 0 12/29/20 20:26 Pain Level 10 12/29/20 20:26
[2020-12-29] MEDS: HYDROcodone 5/Acetaminophen 325 TAB PO (20:52)
--- NOTE | 2020-12-29 21:03 | NUR.NOTE ---
To CAROLANN Lobo Note:
--- NOTE | 2020-12-29 21:27 | DI.RAD_ITS ---
Exam(s) XR PELVIS AP EXAM: XR PELVIS AP CLINICAL HISTORY: medial pain after fall skiing. TECHNIQUE: 2D digital imaging was performed. COMPARISON: CR XR hip RT complete AP pelvis from 04/04/2018 FINDINGS: No evidence of pelvic or hip fracture. Sacroiliac joints appear unremarkable. No obvious degenerati ve changes in the hips and sacroiliac joints. No osseous lesions. IMPRESSION: No fracture evident. DATA REPOSITORY: RADIATION DOSE DELIVERED:
--- NOTE | 2020-12-29 21:27 | DI.RAD_ITS ---
Exam(s) XR FEMUR RT EXAM: XR FEMUR RT CLINICAL HISTORY: medial pain after waterski fall. TECHNIQUE: 2D digital imaging was performed. COMPARISON: No exams were available for comparison FINDINGS: There is no evidence of right hip nor right femur fracture. No obvious degenerative changes in the j oint. Bone density normal. No osseous lesions. IMPRESSION: DATA REPOSITORY: RADIATION DOSE DELIVERED:
--- NOTE | 2020-12-29 21:27 | NUR.NOTE ---
Returns from DI per cart. Denies pain when she is lying still. Rates pain 10/10 with movement. Nursing Note:
--- NOTE | 2020-12-29 21:48 | DI.VRAD_ITS ---
PROCEDURE INFORMATION: Exam: XR Pelvis Exam date and time: 12/29/2020 8:54 PM Age: 65 years old Clinical indication: Injury or trauma; Fall; Blunt trauma (contusions or hematomas); Does not apply; Pelvic region TECHNIQUE: Imaging protocol: XR pelvis. Views: 1 or 2 view. COMPARISON: CR XR hip RT complete AP pelvis 04/04/2018 9:15 AM FINDINGS: Bones/joints: Unremarkable. No acute fracture. Soft tissues: Unremarkable. IMPRESSION: No acute findings. Dictated and Authenticated by: Gianfranco Lawson MD. Ordering:KAMILAH Joiner MD
--- NOTE | 2020-12-29 21:50 | DI.VRAD_ITS ---
PROCEDURE INFORMATION: Exam: XR Right Femur Exam date and time: 12/29/2020 8:54 PM Age: 65 years old Clinical indication: Injury or trauma; Fall; Blunt trauma; Thigh or upper leg; Right TECHNIQUE: Imaging protocol: XR Right femur. Views: 2 views. COMPARISON: CR XR PELVIS AP 12/29/2020 9:13 PM FINDINGS: Bones/joints: Unremarkable. No acute fracture. Soft tissues: Unremarkable. IMPRESSION: No acute findings. Dictated and Authenticated by: Gianfranco Lawson MD. Ordering:KAMILAH Joiner MD
== END 2020-12-29 22:30 | disposition home or self-care (01) ==
PROVIDERS: Emergency Provider Emergency Medicine; PCP Family Medicine
DX: S76.211A Strain of adductor muscle, fascia and tendon of right thigh, initial encounter (principal); X50.1XXA Overexertion from prolonged static or awkward postures, initial encounter; Y93.17 Activity, water skiing and wake boarding
CPT/HCPCS: 73552; 99284; 72170; 99283